=== PATIENT | female | born 1960 | race Caucasian/White ===

== ENCOUNTER → 2020-06-03 13:26 | Outpatient (BNVA) | payer OTHER, SELFPAY | PROVIDERS: PCP Internal Medicine; Referring Provider Internal Medicine; Visit Provider Student in an Organized Health Care Education/Training Program | DX: Z76.89 Persons encountering health services in other specified circumstances (principal) ==

== ENCOUNTER → 2020-09-29 15:08 | Outpatient (BNVA) | payer OTHER, SELFPAY | PROVIDERS: PCP Physician Assistant; Visit Provider Student in an Organized Health Care Education/Training Program ==

== ENCOUNTER → 2021-03-01 10:51 | Outpatient (BNVA) | payer OTHER, SELFPAY | PROVIDERS: Visit Provider Nurse Practitioner Family ==

== ENCOUNTER 2021-03-03 08:22 | Outpatient (REF) | payer OTHER, SELFPAY ==
[2021-03-03 09:42] LABS: Alanine Aminotransferase 12 U/L (0-31); Albumin Level 4.5 g/dL (3.5-5.0); Alkaline Phosphatase 92 U/L (39-117); Anion Gap 12 (12-20); Aspartate Amino Transferase 15 U/L (5-31); Bilirubin Total 0.7 mg/dL (0.0-1.0); Blood Urea Nitrogen 14 mg/dL (9-16); Calcium 9.8 mg/dL (8.4-10.2); Carbon Dioxide 27 mmol/L (22-29); Chloride 101 mmol/L (96-108); Estimated Glomerular Filt Rate > 60; Glucose Random 88 mg/dL (60-115); Potassium 5.3 mmol/L (3.3-5.1); Sodium 135 mmol/L (135-145); Total Protein 7.2 g/dL (6.5-8.0)
== END 2021-03-03 08:23 | disposition home or self-care (01) ==
LOC: HO.LAB 08:22
PROVIDERS: Visit Provider Nurse Practitioner Family
DX: M79.7 Fibromyalgia (principal)
CPT/HCPCS: 36415; 80053

== ENCOUNTER → 2021-11-08 13:24 | Outpatient (BNVA) | payer OTHER, SELFPAY | PROVIDERS: PCP Internal Medicine; Visit Provider Nurse Practitioner Family | DX: M79.7 Fibromyalgia (principal) ==

== ENCOUNTER 2022-10-16 10:58 | Outpatient (REF) | payer OTHER, SELFPAY ==
[2022-10-16 12:52] LABS: Erythrocyte Sedimentation Rate 20 MM/HR (0-20)
[2022-10-16 13:09] LABS: Alanine Aminotransferase 11 U/L (0-31); Albumin Level 4.5 g/dL (3.5-5.0); Alkaline Phosphatase 99 U/L (39-117); Anion Gap 15 (12-20); Aspartate Amino Transferase 15 U/L (5-31); Bilirubin Total 0.7 mg/dL (0.0-1.0); Blood Urea Nitrogen 23 mg/dL (9-16); C Reactive Protein < 0.10 mg/dL (< or = 0.50); Calcium 9.3 mg/dL (8.4-10.2); Carbon Dioxide 22 mmol/L (22-29); Chloride 106 mmol/L (96-108); Estimated Glomerular Filt Rate > 60; Glucose Random 87 mg/dL (60-115); Potassium 4.8 mmol/L (3.3-5.1); Sodium 138 mmol/L (135-145); Vitamin D 25-OH Total 33.5 ng/mL (>30)
[2022-10-16 13:33] LABS: Amphetamine Screen Urine Not Detected (Not Detect); Barbiturates, Urine Not Detected (Not Detect); Benzodiazepines Screen Urine Not Detected (Not Detect); Cannabinoid Screen Urine Not Detected (Not Detect); Cocaine Screen Urine Not Detected (Not Detect); Fentanyl, urine Not Detected (Not Detect); Opiate Screen Urine Not Detected (Not Detect); Phencyclidine Screen Urine Not Detected (Not Detect)
== END 2022-10-16 10:59 | disposition home or self-care (01) ==
LOC: HO.LAB 10:58
PROVIDERS: Visit Provider Nurse Practitioner Family
DX: M79.7 Fibromyalgia (principal); Z79.899 Other long term (current) drug therapy
CPT/HCPCS: 80053; 80307; 82306; 85652; 86140

== ENCOUNTER 2023-02-11 14:16 | Outpatient (AMB) | payer OTHER, SELFPAY ==
--- NOTE | 2023-02-11 14:25 | MHC.OFFVIS ---
Intake Vital Signs 02/11/23 14:26 Height 5 ft 5 in Weight 138 lb 0.15 oz BMI 23.0 BP 100/68 Blood Pressure Location Rt brachial Position Sitting Pulse 68 Pulse Source Pulse Oximeter Temp 97.0 F Temp Source Skin Pulse Oximetry (%) 99 Oxygen Delivery Method Room Air Intake Visit Reasons: FM Intake Note: Here for fibromyalgia follow up. 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 She gets pain in the neck, back of the shoulders, lower back, lateral hips, and the right leg. Overall she feels the fibromyalgia pains are relatively well controlled with current measures which include occasional Celebrex or ibuprofen, tramadol 50 mg b.i.d., and daily exercise. She seems to be getting regularly some GI upset taking the Celebrex so she switched back to ibuprofen but still has problems with that medication as well. However most problematic recently has been right lateral hip pain. This had been a problem in the past and was helped transiently with a local injection. She also gets some back pain that accompanies the hip pain. She had previous success with Dr. Griggs at [place]. She did not know he was still in practice. [facility] Medical History Fibromyalgia Fusion of lumbar spine Internal hemorrhoid Migraine Surgical History H/O laminectomy Hx of hysterectomy Family History Father Pancreas cancer Mother Pancreas cancer Maternal Grandmother Uterus cancer Social History (Updated 02/11/23 @ 14:33 by SALVADOR Guillaume) Household Members: Spouse Housing: House Alcohol intake: current Alcohol intake frequency: holidays/special occasions only Alcohol type: wine Patient Tobacco Use Status: Never used Tobacco service: No Current occupational status: retired Review of Systems Const Details: Negative for appetite change, weight change, fever, chills, malaise and fatigue Card Details: Negative chest pain, edema and syncope Resp Details: Negative for SOB, cough and wheezing GI Details: Negative indigestion/heartburn, nausea, abdominal pain, bowel changes, diarrhea, constipation and bloody stool. Details: Negative for dysuria, hematuria, nocturia, decreased force/flow and genital discharge Neuro Details: Negative for epilepsy, palsy, stroke, changes in speech, tingling and weakness Raymond/Lymph Details: Negative for excessive bruising or bleeding. Physical Exam Vital Signs: Last Vital Signs Temp 97.0 F 02/11/23 14:26 Pulse 68 02/11/23 14:26 BP 100/68 02/11/23 14:26 Pulse Ox 99 02/11/23 14:26 Oxygen Delivery Method Room Air 02/11/23 14:26 BMI result Body Mass Index 23.0 APPEARANCE: Patient in no acute distress EYES no redness, pupils equal and reactive to light, eyelids normal. No temporal artery tenderness, redness or swelling. ABD: Normal bowel sounds, no organomegaly, masses or tenderness. EXTREMITIES: No edema, no calf tenderness, normal peripheral pulses. NEURO: Oriented and alert x3. No focal weakness. Reflexes symmetric. Gait normal. JOINT EXAM: Cervical Spine:? Normal range of motion with mild discomfort at the extremes. No tenderness to palpation over the cervical spine. ? Mild tenderness to palpation of cervical spinal muscles. Thoracic Spine:? No scoliosis.? No tenderness on palpation. Lumbar Spine: Alignment normal.? Tenderness to palpation of the paraspinal muscles. There is pain with flexion beyond 60 degrees. Straight leg raising causes some right buttock and thigh pain at 60 degrees. Hands: Normal pain-free range of motion without tenderness, swelling, increased warmth or erythema. Able to make a full fist and has a good compensation consultant strength. Wrists: Normal pain-free range of motion without tenderness, swelling, increased warmth or erythema. Elbows: Normal pain-free range of motion without tenderness, swelling, increased warmth or erythema. Shoulders:?? Left: Full range of motion without pain. No tenderness, weakness, swelling, increased warmth or erythema. ? Right:? Full range of motion? without pain.? No swelling, increased erythema or warmth. Hips:? Left: Full range of motion, mild lumbar pain at the extremes of range of motion. No groin pain with motion. ? Right:? Mild buttock and lateral pain with extremes of rotation. No groin pain with motion. Hip bursa:? Moderate right and mild left trochanteric tenderness. Knees:? Normal pain-free range of motion without tenderness, swelling, increased warmth or erythema.? There is no effusion or crepitation Ankles:? Normal pain-free range of motion without tenderness, swelling, increased warmth or erythema. Feet:? Normal pain-free range of motion without tenderness, swelling, increased warmth or erythema. Tender points: Mild tenderness to palpation of the Occiput, trapezius, second rib, lateral epicondyle, knees, greater trochanter and gluteal area bilaterally. ?? Results Reviewed Results Reviewed: [facility] [employer] MEDICAL Imaging Result Report Patient: Nena Trejo Date of Service: 05/23/21 ? ? Patient Gender: Female Ordering Provider: Mando Peterson : 1960 ? ? ? Final MRI OF LUMBAR SPINE NO CONTRAST Exam Date: 05/23/2021 1:15 PM Ordering Diagnosis: Lumbar radiculopathyLumbar spondylosis ? MRI OF LUMBAR SPINE NO CONTRAST ? MR OF THE LUMBAR SPINE WITHOUT CONTRAST ? HISTORY: Lumbar radiculopathy. Lumbar spondylosis.. History fusion L5-S1. ? Technique: MR of the lumber spine was performed without contrast utilizing the standard departmental protocol. ? COMPARISON: Dictated report of lumbar spine series of 11/11/2020 is available for review. ? FINDINGS: Susceptibility artifact from orthopedic hardware somewhat limits image quality at the L4-5 level. Several sequences are limited by motion. ? Conus medullaris terminates at the [T12-L1] level, and demonstrates normal signal. There is no abnormal thickening or clumping of the cauda equina nerve roots. There is normal alignment of the lumbar spine. Vertebral body heights are normal. ? There is disc desiccation at every level. ? There is a hemangioma the L1 vertebral body. ? There is a tear of the annulus at the posterior disc margin in the midline at T12-L1 on the sagittal sequences. ? At L1-2, there is small posterior central disc bulge with tear of the annulus demonstrated on the sagittal sequences. No axial images are obtained through this level.. ? At L2-3, there is mild disc bulging with tear of the annulus at the posterior disc margin in the midline. There is no significant neural foraminal narrowing. There is no central spinal canal stenosis.. ? At L3-4, there is disc bulging with bilateral lateral disc bulging and small central disc protrusion/herniation. There is moderate bilateral neural foraminal narrowing, ligamentous bulging, mild facet arthropathy, and narrowing of the transverse diameter of the dural tube. There is moderate central spinal stenosis. ? At L4-5, there is disc bulging with bilateral lateral disc bulging, ligamentous bulging, moderate facet arthropathy, moderate bilateral neural foraminal narrowing. There is narrowing of the transverse diameter of the dural tube. There is mild central spinal canal stenosis. There is left lateral recess narrowing with disc compressing the left L5 nerve root in the lateral recess. ? At L5-S1, there is posterior fusion hardware which somewhat limits evaluation. There is no residual disc identified. There is no neural foraminal narrowing or central spinal canal stenosis. ? At S1-S2, there is a rudimentary disc. ? IMPRESSION IMPRESSION: Compression of the left L5 nerve root as described. ? Multilevel bony and discogenic degenerative changes as described. ? Posterior fusion at L5-S1. ? Reading Radiologist: Electronically signed by: Malinda Hansen MD Assessment & Plan Assessment & Plan (1) Degenerative disc disease, cervical: Code(s): M50.30 - Other cervical disc degeneration, unspecified cervical region (2) Osteoarthritis of lumbar spine: Code(s): M47.816 - Spondylosis without myelopathy or radiculopathy, lumbar region (3) Trochanteric bursitis of right hip: Code(s): M70.61 - Trochanteric bursitis, right hip (4) Fibromyalgia: Code(s): M79.7 - Fibromyalgia Plan Osteoarthritis with some benefit at times with the tramadol. It does not seem to cause her any side effects and she takes it responsibly so I think it could be continued. She could add more acetaminophen to her regimen rather than the NSAIDs which seem to be causing some GI upset. We will add some nighttime cyclobenzaprine of tolerated 5-10 mg. I gave her the phone number for Dr. Griggs in [place] to make an appointment to see what he might offer her back pain problems. A follow-up in 4-6 months would be reasonable. Medications: New cyclobenzaprine 5 - 10 mg (0.5 - 1 x 10 mg) PO BEDTIME PRN 30 tabs 1RF muscle spasm Coding Level of Care Code Est Pt Level 3 (67947) Diagnoses Degenerative disc disease, cervical M50.30 Osteoarthritis of lumbar spine M47.816 Trochanteric bursitis of right hip M70.61 Fibromyalgia M79.7
[2023-02-11 14:26] VITALS: BP 100/68; PULSE 68; TEMP 36.1; O2SAT 99; BMI 23.0
== END 2023-02-11 15:26 | disposition home or self-care (01) ==
PROVIDERS: PCP Internal Medicine; Visit Provider Internal Medicine Rheumatology
DX: M50.30 Other cervical disc degeneration, unspecified cervical region (principal); M47.816 Spondylosis without myelopathy or radiculopathy, lumbar region; M70.61 Trochanteric bursitis, right hip; M79.7 Fibromyalgia
CPT/HCPCS: 99213

== ENCOUNTER → 2023-02-11 14:16 | Outpatient (BNVA) | payer OTHER, SELFPAY | PROVIDERS: PCP Internal Medicine; Visit Provider Internal Medicine Rheumatology ==

== ENCOUNTER 2023-05-28 10:10 | Outpatient (AMB) | payer OTHER, SELFPAY ==
--- NOTE | 2023-05-28 10:17 | MHC.OFFVIS ---
Intake Vital Signs 05/28/23 10:18 Height 5 ft 5 in Weight 140 lb 14.006 oz BMI 23.4 BP 104/70 Blood Pressure Location Lt brachial Position Sitting Pulse 92 Pulse Source Pulse Oximeter Temp 97.7 F Temp Source Skin Pulse Oximetry (%) 98 Oxygen Delivery Method Room Air Intake Visit Reasons: oA ls, fm Intake Note: Last seen January,, returning to office in 4-6 months. Presents to office today for OA and fibromyalgia follow up. c/o pihllip hip pain. Reports seeing OSCAR Flor, community education specialist, yesterday. Received cortisone injection on left hip. Service Specialist Required: No Accompanied by: Self / Same As Patient Allergies pregabalin Allergy (Intermediate, Verified 05/28/23 10:17) hives Medication List - Last Reconciled 05/28/23 by Roque Mcdowell MD acetaminophen (Acetaminophen Extra Strength) 500 mg PO Q6H PRN celecoxib (Celebrex) 200 mg PO .2-3 times a week cyclobenzaprine 5 - 10 mg (0.5 - 1 x 10 mg) PO BEDTIME PRN diclofenac sodium 1% (Voltaren) 2 grams topical QID PRN gabapentin mg PO pantoprazole 40 mg PO DAILY sumatriptan succinate 25 mg PO tramadol 50 mg PO BID PRN HPI HPI Comments History of Present Illness Details The patient returns for evaluation of her joint pains. She has a history of fibromyalgia and osteoarthritis. She remains on Celebrex 200 mg taking once or twice a day if needed for more severe pains. She had some ibuprofen 800 mg and some signs she has taken that. Currently she is out of that prescription. She also uses some cyclobenzaprine in the evenings and Tylenol on an as-needed basis. She takes the tramadol 50 mg b.i.d.. It does not seem to cause any side effects. She noted some increase in pain this fall. She did visit the community education specialist. She has had previous back surgery but was mostly complaining of left lateral hip and buttock pain. She did receive a corticosteroid injection for what sounds like was trochanteric bursitis yesterday. The symptoms have improved slightly at this point. She also has been started on gabapentin. Previously she had some rashes with Lyrica. [facility] Medical History Fibromyalgia Fusion of lumbar spine Internal hemorrhoid Migraine Surgical History H/O laminectomy Hx of hysterectomy Family History Father Pancreas cancer Mother Pancreas cancer Maternal Grandmother Uterus cancer Social History (Updated 02/11/23 @ 14:33 by SALVADOR Guillaume) Household Members: Spouse Housing: House Alcohol intake: current Alcohol intake frequency: holidays/special occasions only Alcohol type: wine Patient Tobacco Use Status: Never used Tobacco service: No Current occupational status: retired Review of Systems Const Details: Some fatigue, particularly when her sleep gets disrupted. Negative for appetite change, weight change, fever, chills, malaise Eyes Details: Occasional headache. Negative for vision change, dry eyes and dizziness ENT Details: Negative for hearing change, tinnitus, oral ulcer, nose bleeds and oral dryness. Card Details: Negative chest pain, edema and syncope Resp Details: Occasional morning, nonproductive cough. Negative for SOB and wheezing GI Details: Negative indigestion/heartburn, nausea, abdominal pain, bowel changes, diarrhea, constipation and bloody stool. Neuro Details: Negative for epilepsy, palsy, stroke, changes in speech, tingling and weakness Endo Details: Negative for polyuria and polydypsia Raymond/Lymph Details: Negative for excessive bruising or bleeding. Physical Exam Vital Signs: Last Vital Signs Temp 97.7 F 05/28/23 10:18 Pulse 92 05/28/23 10:18 BP 104/70 05/28/23 10:18 Pulse Ox 98 05/28/23 10:18 Oxygen Delivery Method Room Air 05/28/23 10:18 BMI result Body Mass Index 23.4 APPEARANCE: Patient in no acute distress EYES no redness, pupils equal and reactive to light, eyelids normal NECK: No thyromegaly or masses, no adenopathy, trachea midline. HEART: Regulrar rhythm, S1-S2 heard, no murmurs, rubs or gallops. LUNG: Clear to percussion and auscultation ABD: Normal bowel sounds, no organomegaly, masses or tenderness. EXTREMITIES: No edema, no calf tenderness, normal peripheral pulses. JOINT EXAM: Cervical Spine:? Normal range of motion with mild discomfort at the extremes. No tenderness to palpation over the cervical spine. ? Mild tenderness to palpation of cervical spinal muscles. Thoracic Spine:? No scoliosis.? No tenderness on palpation. Lumbar Spine: Alignment normal.? Tenderness to palpation of the paraspinal muscles. There is pain with flexion beyond 60 degrees. Straight leg raising causes some right buttock and thigh pain at 60 degrees. Hands: Normal pain-free range of motion without tenderness, swelling, increased warmth or erythema. Able to make a full fist and has a good drainman strength. Wrists: Normal pain-free range of motion without tenderness, swelling, increased warmth or erythema. Elbows: Normal pain-free range of motion without tenderness, swelling, increased warmth or erythema. Shoulders:?? Left: Full range of motion without pain. No tenderness, weakness, swelling, increased warmth or erythema. ? Right:? Full range of motion? without pain.? No swelling, increased erythema or warmth. Hips:? Left: Full range of motion, mild lumbar, lateral and buttock pain at the extremes of range of motion. No groin pain with motion. ? Right:? Mild buttock and lateral pain with extremes of rotation. No groin pain with motion. Hip bursa:? Moderate right and mild left trochanteric tenderness. Knees:? Normal pain-free range of motion without tenderness, swelling, increased warmth or erythema.? There is no effusion or crepitation Ankles:? Normal pain-free range of motion without tenderness, swelling, increased warmth or erythema. Feet:? Normal pain-free range of motion without tenderness, swelling, increased warmth or erythema. Tender points: Mild tenderness to palpation of the Occiput, trapezius, second rib, lateral epicondyle, knees, greater trochanter and gluteal area bilaterally. ?? Results Reviewed Results Reviewed: [facility] Result Report Patient: Nena Trejo Date of Service: 05/23/21 ? ? Patient Gender: Female Ordering Provider: Mando Peterson : 1960 ? ? ? Final MRI OF LUMBAR SPINE NO CONTRAST Exam Date: 05/23/2021 1:15 PM Ordering Diagnosis: Lumbar radiculopathyLumbar spondylosis ? MRI OF LUMBAR SPINE NO CONTRAST ? MR OF THE LUMBAR SPINE WITHOUT CONTRAST ? HISTORY: Lumbar radiculopathy. Lumbar spondylosis.. History fusion L5-S1. ? Technique: MR of the lumber spine was performed without contrast utilizing the standard departmental protocol. ? COMPARISON: Dictated report of lumbar spine series of 11/11/2020 is available for review. ? FINDINGS: Susceptibility artifact from orthopedic hardware somewhat limits image quality at the L4-5 level. Several sequences are limited by motion. ? Conus medullaris terminates at the [T12-L1] level, and demonstrates normal signal. There is no abnormal thickening or clumping of the cauda equina nerve roots. There is normal alignment of the lumbar spine. Vertebral body heights are normal. ? There is disc desiccation at every level. ? There is a hemangioma the L1 vertebral body. ? There is a tear of the annulus at the posterior disc margin in the midline at T12-L1 on the sagittal sequences. ? At L1-2, there is small posterior central disc bulge with tear of the annulus demonstrated on the sagittal sequences. No axial images are obtained through this level.. ? At L2-3, there is mild disc bulging with tear of the annulus at the posterior disc margin in the midline. There is no significant neural foraminal narrowing. There is no central spinal canal stenosis.. ? At L3-4, there is disc bulging with bilateral lateral disc bulging and small central disc protrusion/herniation. There is moderate bilateral neural foraminal narrowing, ligamentous bulging, mild facet arthropathy, and narrowing of the transverse diameter of the dural tube. There is moderate central spinal stenosis. ? At L4-5, there is disc bulging with bilateral lateral disc bulging, ligamentous bulging, moderate facet arthropathy, moderate bilateral neural foraminal narrowing. There is narrowing of the transverse diameter of the dural tube. There is mild central spinal canal stenosis. There is left lateral recess narrowing with disc compressing the left L5 nerve root in the lateral recess. ? At L5-S1, there is posterior fusion hardware which somewhat limits evaluation. There is no residual disc identified. There is no neural foraminal narrowing or central spinal canal stenosis. ? At S1-S2, there is a rudimentary disc. ? IMPRESSION IMPRESSION: Compression of the left L5 nerve root as described. ? Multilevel bony and discogenic degenerative changes as described. ? Posterior fusion at L5-S1. ? Reading Radiologist: Assessment & Plan Assessment & Plan (1) Osteoarthritis of lumbar spine: Code(s): M47.816 - Spondylosis without myelopathy or radiculopathy, lumbar region (2) Medication monitoring encounter: Comment: Pain contract signed 05/11/2022 Code(s): Z51.81 - Encounter for therapeutic drug level monitoring (3) Degenerative disc disease, cervical: Code(s): M50.30 - Other cervical disc degeneration, unspecified cervical region (4) Fibromyalgia: Code(s): M79.7 - Fibromyalgia Plan She does have fairly widespread pains but no signs on exam of an active inflammatory arthritis. She has had previous lumbar fusion for degenerative disease and it seems to be that secondary OA is the problem in that region. Similarly she has documented cervical osteoarthritis. The lumbar OA could be contributing somewhat to her hip pain although we are waiting to see if this local injection for trochanteric bursitis helps. I would agree with the starting the gabapentin as she also has some element of fibromyalgia. The gabapentin dose of course could be gradually increased as tolerated. She does not seem to have any side effects and claims some benefit with tramadol so we will continue that prescription. Light aerobic activity is encouraged. She will follow through with further treatment with physiatry. A follow-up here in about 6 months seems reasonable. Coding Level of Care Code Est Pt Level 3 (70820) Diagnoses Osteoarthritis of lumbar spine M47.816 Medication monitoring encounter Z51.81 Degenerative disc disease, cervical M50.30 Fibromyalgia M79.7
[2023-05-28 10:18] VITALS: BP 104/70; PULSE 92; TEMP 36.5; O2SAT 98; BMI 23.4
== END 2023-05-28 10:46 | disposition home or self-care (01) ==
PROVIDERS: PCP Internal Medicine; Visit Provider Internal Medicine Rheumatology
DX: M47.816 Spondylosis without myelopathy or radiculopathy, lumbar region (principal); Z51.81 Encounter for therapeutic drug level monitoring; M50.30 Other cervical disc degeneration, unspecified cervical region; M79.7 Fibromyalgia
CPT/HCPCS: 99213

== ENCOUNTER → 2023-05-28 10:10 | Outpatient (BNVA) | payer OTHER, SELFPAY | PROVIDERS: PCP Internal Medicine; Visit Provider Internal Medicine Rheumatology ==

== ENCOUNTER 2023-11-27 08:55 | Outpatient (AMB) | payer OTHER, SELFPAY ==
--- NOTE | 2023-11-27 09:01 | A.OFFVIS_ITS ---
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 Mcdowell, presents today for OA/FM follow up. 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 She has a history of fibromyalgia and osteoarthritis. She remains on Celebrex 200 mg taking once or twice a day if needed for more severe pains. She has not taken ibuprofen 800 mg in a while. She also uses cyclobenzaprine in the evenings and Tylenol on an as- needed basis. She takes the tramadol 50 mg b.i.d.. She sees Neuro and Physiatry for he Back pain and recent MRI shows severe spinal stenosis per Physiatry. The gabapentin was increased by physiatry to gabapentin 250 BID but she only takes one because it bothers her stomach to take more. She is being evaluated for treatment options for her back. She reports feeling increasingly depressed. because of the constant pain. She has seen a therapist before. She reports an allergic reaction to a corticosteroid injection for what sounds like trochanteric bursitis. Previously she had some rashes with Lyrica. --MRI of Lumbar spine; have had prior spine surgery. Following with Neuro and Physiatry --Elevated Microalbumin/Creatinin ratio - will continue to follow with with PCP. [facility] Medical History (Updated 11/27/23 @ 09:32 by RUBEN Wolf) Depression Migraine Internal hemorrhoid Fusion of lumbar spine Fibromyalgia Surgical History Hx of hysterectomy H/O laminectomy Family History Father Pancreas cancer Mother Pancreas cancer Maternal Grandmother Uterus cancer Social History Household Members: Spouse Housing: House Alcohol intake: current Alcohol intake frequency: holidays/special occasions only Alcohol type: wine Patient Tobacco Use Status: Never used Tobacco service: No Current occupational status: retired Review of Systems Const All systems reviewed & are unremarkable except as noted in HPI and below Physical Exam Vital Signs: Last Vital Signs Pulse 75 11/27/23 09:02 BP 116/70 11/27/23 09:02 Pulse Ox 98 11/27/23 09:02 Oxygen Delivery Method Room Air 11/27/23 09:02 BMI result Body Mass Index 24.1 APPEARANCE: Patient in no acute distress; tearful EYES no redness, eyelids normal HEART: Regular rhythm, S1-S2 heard, no murmurs, rubs or gallops. LUNG: Clear to percussion and auscultation EXTREMITIES: No edema, no calf tenderness, normal peripheral pulses. walks slowly with a slouch JOINT EXAM: Cervical Spine:? Normal range of motion with discomfort at the extremes. No tenderness to palpation over the cervical spine. ? Mild tenderness to palpation of cervical spinal muscles. Thoracic Spine:? No scoliosis.? No tenderness on palpation. Lumbar Spine: Alignment normal.? Tenderness to palpation of the paraspinal muscles. There is pain with flexion beyond 60 degrees. Straight leg raising causes some right buttock and thigh pain at 60 degrees. Hands: Normal pain-free range of motion without tenderness, swelling, increased warmth or erythema. Able to make a full fist and has a good hostler helper strength. Wrists: Normal pain-free range of motion without tenderness, swelling, increased warmth or erythema. Elbows: Normal pain-free range of motion without tenderness, swelling, increased warmth or erythema. Shoulders:?? Left: Full range of motion without pain. No tenderness, weakness, swelling, increased warmth or erythema. ? Right:? Full range of motion? without pain.? No swelling, increased erythema or warmth. Hips:? Left: Full range of motion, mild lumbar, lateral and buttock pain at the extremes of range of motion. No groin pain with motion. ? Right:? Mild buttock and lateral pain with extremes of rotation. No groin pain with motion. Hip bursa:? Moderate right and mild left trochanteric tenderness. Knees:? Normal pain-free range of motion without tenderness, swelling, increased warmth or erythema.? There is no effusion or crepitation Ankles:? Normal pain-free range of motion without tenderness, swelling, increased warmth or erythema. Feet:? Normal pain-free range of motion without tenderness, swelling, increased warmth or erythema. Tender points: Mild tenderness to palpation of the Occiput, trapezius, second rib, lateral epicondyle, knees, greater trochanter and gluteal area bilaterally. ?? Assessment & Plan Assessment & Plan (1) Osteoarthritis of lumbar spine: Code(s): M47.816 - Spondylosis without myelopathy or radiculopathy, lumbar region Category: Medical Qualifiers: Spinal osteoarthritis complication: with radiculopathy Qualified Code(s): M47.26 - Other spondylosis with radiculopathy, lumbar region (2) Medication monitoring encounter: Comment: Pain contract signed 05/11/2022 Code(s): Z51.81 - Encounter for therapeutic drug level monitoring Category: Medical (3) Degenerative disc disease, cervical: Code(s): M50.30 - Other cervical disc degeneration, unspecified cervical region Category: Medical (4) Fibromyalgia: Code(s): M79.7 - Fibromyalgia Category: Medical (5) Depression: Code(s): F32.A - Depression, unspecified Category: Medical Qualifiers: Depression Type: reactive depression Qualified Code(s): F32.9 - Major depressive disorder, single episode, unspecified Plan #FM/Lumbar DDD:Ms. Trejo was tearful when she expresses that she is in severe pain but tries to keep active with walking. Fairlywidespread pains but no signs on exam of an active inflammatory arthritis. She has had previous lumbar fusion for degenerative disease. Similarly she has documented cervical osteoarthritis. The lumbar OA is likely contributing to her hip pain. The increase in Gabapenitin did help her but she fears it may also contribute to her depressive mood. She denies any side effects and claims some benefit with tramadol so we will continue that prescription. Light aerobic activity is encouraged. She will follow through with further treatment with physiatry and [facility]. #Depressive Mood: I recommend that she see a therapist again who can help her manage this. A follow-up here in about 6 months I spent 25 minutes reviewing chart, evaluating patient and documenting Coding Level of Care Code Est Pt Level 3 (86310) Diagnoses Osteoarthritis of spine with radiculopathy, lumbar region M47.26 Spinal osteoarthritis complication: with radiculopathy Medication monitoring encounter Z51.81 Degenerative disc disease, cervical M50.30 Fibromyalgia M79.7 Reactive depression F32.9 Depression Type: reactive depression
[2023-11-27 09:02] VITALS: BP 116/70; PULSE 75; O2SAT 98; BMI 24.1
== END 2023-11-27 09:33 | disposition home or self-care (01) ==
PROVIDERS: PCP Internal Medicine; Visit Provider Nurse Practitioner Family
DX: M47.26 Other spondylosis with radiculopathy, lumbar region (principal); Z51.81 Encounter for therapeutic drug level monitoring; M50.30 Other cervical disc degeneration, unspecified cervical region; M79.7 Fibromyalgia; F32.9 Major depressive disorder, single episode, unspecified
CPT/HCPCS: 99213

== ENCOUNTER → 2023-11-27 08:55 | Outpatient (BNVA) | payer OTHER, SELFPAY | PROVIDERS: PCP Internal Medicine; Visit Provider Nurse Practitioner Family ==

== ENCOUNTER 2024-05-28 10:53 | Outpatient (AMB) | payer OTHER, SELFPAY ==
--- NOTE | 2024-05-28 10:55 | A.OFFVIS_ITS ---
Vital Signs 05/28/24 11:02 Height 5 ft 5 in Weight 139 lb 5.314 oz BMI 23.2 BP 124/68 Blood Pressure Location Lt brachial Position Sitting Pulse 71 Pulse Source Pulse Oximeter Intake Visit Reasons: FM/Loweer back Pain Intake Note: Patient present for Lower back pain, last seen by Kiley Reyes on 11/27/23. Patient reports she was diagnoised with Chronic Lyme Disease 3 months ago and is currently on amoxicillin. Pain Duration? 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 At that time patient was tearful about her widespread pain. There was no evidence of inflammatory arthritis. Since then she went to see an Integrative medicine specialist. She was diagnosed with chronic lyme disease and given 2 months of doxycycline. She states she feels that this helped her but the pain returned after completing the treatment. She is also currently on several supplements. Today she continues to complain of widespread pain and is hoping for some additional therapeutic options Also notes tinnitus and decreased hearing as per her family Rheumatologic History: Fibromyalgia - gabapentin: helped but she felt it made her more depressed - celebrex: helped but not fully efficacious so self discontinued - Duloxetine: not efficacious - cylcobenazaprine: self discontinued Current Rheumatology Medication(s): Tramadol 50mg bid prn PFSH Medical History (Updated 11/27/23 @ 09:32 by VANDANA Wolf-GEORGIE) Depression Migraine Internal hemorrhoid Fusion of lumbar spine Fibromyalgia Surgical History Hx of hysterectomy H/O laminectomy Family History Father Pancreas cancer Mother Pancreas cancer Maternal Grandmother Uterus cancer Social History Household Members: Spouse Housing: House Alcohol intake: current Alcohol intake frequency: holidays/special occasions only Alcohol type: wine Patient Tobacco Use Status: Never used Tobacco service: No Current occupational status: retired Review of Systems Const Details: Review of Systems Constitutional: Denies fever, chills, weight loss ENT: Denies vision changes, eye pain or eye redness, dental caries, dry mouth GI: Denies nausea, vomiting, diarrhea, abdominal pain, change in BM Pulm: Denies SOB, HERNANDEZ, hemoptysis, wheezing Cards: Denies chest pain, palpitations Skin: Denies Raynaud's, rash, nail changes, photosensitivity, 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 Well appearing and in no apparent painful distress HEENT Conjunctiva and sclera clear. ?Pupils equal round and reactive to light. ?No lymphadenopathy. ? CHEST/RESPIRATORY SYSTEM Normal respiratory effort and able to speak in complete sentences. ?Clear to auscultation bilaterally. ?No crackles, rales, rhonchi, wheezes heard. CARDIAC SYSTEM Regular rate and rhythm. ?S1 and S2 heard no murmurs. ?Radial pulses intact bilaterally MSK Hands: ?Good appeals coordinator strength bilaterally. No deformities noted. ?No synovitis noted to the MCPs, PIPs or DIPs. ?No tenderness to palpation of these joints. Wrists: ?Full range of motion at the wrists without pain. ?No tenderness to palpation or synovitis noted to the wrists. Elbows: Full range of motion without pain. No tenderness, weakness, swelling, increased warmth or erythema. Shoulders: Full range of motion without pain. No tenderness, weakness, swelling, increased warmth or erythema. Hips: Full range of motion without pain. Hip bursa: No tenderness to palpation Knees: ?Full range of motion. ?No tenderness, swelling, increased warmth or erythema.?No effusion or crepitations Ankles: Full range of motion. ?No tenderness, swelling, increased warmth or erythema.? Feet: ?Negative squeeze test. ?No tenderness to palpation or swelling of the MTPs. Tender points:??No tenderness to palpation of the neck, shoulders, chest, elbows, hips, buttocks or knees. SKIN Skin intact without rashes. Results Reviewed Results Reviewed: Laboratory Tests 08/18/18 10/16/22 09:30 11:10 ESR 34 H 20 C-Reactive Protein < 0.10 25-OH Vitamin D Total 33.5 Rheumatoid Factor < 15.0 Cycl Citrul Peptide IgG <16 MALA Screen Negative Assessment & Plan Assessment & Plan (1) Fibromyalgia: Code(s): M79.7 - Fibromyalgia Category: Medical Plan: #Fibromyalgia Limited therapeutic options available Unable to do low dose naltrexone because patient is on tramadol Failed duloxetine Failed gabapentin Plan - Milnacipran 25mg. Start one tablet a day then 1 tablet twice a day then up to 2 tablets twice a day - Continue stretches and light exercise - requesting referral to audiology for hearing evaluation - RTC 6 months Plan I spent 20 minutes reviewing the record and labs, seeing the patient, discussing the treatment plan and documenting in the medical record ? Orders: Referrals Audiology Referral H91.93 - Unspecified hearing loss, bilateral, H93.19 - Tinnitus, unspecified ear Medications: New milnacipran 25 mg PO BID 90 days 180 tabs 1RF M79.7 - Fibromyalgia Discontinued cyclobenzaprine Discontinued Reason: Patient no longer taking 5 - 10 mg (0.5 - 1 x 10 mg) PO BEDTIME PRN 30 tabs 1RF muscle spasm Coding Level of Care Code Est Pt Level 3 (41736) Diagnoses Fibromyalgia M79.7
[2024-05-28 11:02] VITALS: BP 124/68; PULSE 71; BMI 23.2
== END 2024-05-28 11:48 | disposition home or self-care (01) ==
PROVIDERS: PCP Internal Medicine; Visit Provider Student in an Organized Health Care Education/Training Program
DX: M79.7 Fibromyalgia (principal)
CPT/HCPCS: 99213

== ENCOUNTER → 2024-05-28 10:53 | Outpatient (BNVA) | payer OTHER, SELFPAY | PROVIDERS: PCP Internal Medicine; Visit Provider Student in an Organized Health Care Education/Training Program ==

== ENCOUNTER 2024-06-25 09:11 | Outpatient (REF) | payer OTHER, SELFPAY | END 2024-06-25 09:12 | disposition home or self-care (01) | LOC: HO.SH 09:11 | PROVIDERS: Visit Provider Student in an Organized Health Care Education/Training Program | DX: H93.19 Tinnitus, unspecified ear (principal); H91.93 Unspecified hearing loss, bilateral | CPT/HCPCS: 92557 ==

== ENCOUNTER 2025-05-04 09:08 | Outpatient (AMB) | payer OTHER, SELFPAY ==
--- OUTSIDE RECORDS SUMMARY | 2025-04-30 09:30 | XMS_ITS | Encounter Summary ---
Author Organization [employer] Address [address] [place] [address] Care Team Providers Care Category Planner Name Role Phone Marion Soria Primary Care Provider + Reason for Visit * Reason Comments Fibromyalgia Neck Pain Back Pain Migraine GERD Hyperlipidemia Encounter Details Date Type Department Care Team (Latest Contact Info) Description 04/30/2025 9:30 AM EST Office Visit Internal Medicine - [address] [place] [address] Marion Soria PA [address] [place] [address] Fibromyalgia (Primary Dx); Chronic neck and back pain; History of migraine; Gastroesophageal reflux disease, unspecified whether esophagitis present; Pure hypercholesterolemia Social History Tobacco Use Types Packs/Day Years Used Date Smoking Tobacco: Never Smokeless Tobacco: Never Alcohol Use Standard Drinks/Week Comments No 0 (1 standard drink = 0.6 oz pur e alcohol) Comments Unknown Sex and Gender Information Value Date Recorded Sex Assigned at Not on file Legal Sex Female 1:58 AM EST Gender Identity Not on file Sexual Orientation Not on file documented as of this encounter Last Filed Vital Signs Vital Sign Reading Time Taken Comments Blood Pressure 125/89 04/30/2025 9:26 AM EST Pulse 79 04/30/2025 9:26 AM EST Temperature 37 C (98.6 F) 04/30/2025 9:26 AM EST Respiratory Rate - - Oxygen Saturation 99% 04/30/2025 9:26 AM EST Inhaled Oxygen Concentration - - Weight 66.1 kg (145 lb 12.8 oz) 04/30/2025 9:26 AM EST Height 162.6 cm (5' 4 ) 04/30/2025 9:26 AM EST Body Mass Index 25.03 04/30/2025 9:26 AM EST documented in this encounter Ordered Prescriptions Prescription Sig Dispense Quantity Refills Last Filled Start Date End Date pantoprazole (PROTONIX) 20 mg EC tabletIndications:G astroesophageal reflux disease, unspecified whether esophagitis present Take 1 tablet (20 mg total) by mouth 1 (one) time each day before breakfast. Do not crush, chew, or split. 90 tablet 3 04/30/2025 documented in this encounter Progress Notes * OSCAR Cardoso - 04/30/2025 9:30 AM EST CHIEF COMPLAINT: Fibromyalgia, Neck Pain (/), Back Pain, Migraine (/), GERD, and Hyperlipidemia IDENTIFIER: Nena Trejo is a 64 y.o. old female. HPI: Follow-up fibromyalgia, chronic neck and back pain, migraine headaches, GERD and hyperlipidemia. She was last seen by me for physical 10/28/2024. Last labs (CMP, hemoglobin A1c, lipids, CBC with differential, magnesium, vitamin D, vitamin B12, TSH, ferritin, iron, folate) were done 01/29/2025. States she is compliant with her medications and denies any side effects. Fibromyalgia/chronic neck and back pain are mostly stable on tramadol 50 mg 1-2 tabs daily as needed per rheumatology. She also follows with naturopathic provider in [place] and integrative medicine provider in [place]. Had been treated for chronic Lyme about a year ago. Migraine headaches treated with Imitrex as needed. GERD is stable with pantoprazole 20 mg daily. Hyperlipidemia is dietcontrolled and stable with last LDL 133, triglycerides 104, HDL 72. Vitamin D was a bit low at 19.5. Was encouraged compliance with her vitamin D supplementation. Also stopped b12 supp as was elevated. Does feel like a lot of her symptoms can be triggered by stress from living with her who she and wants a divorce, but he is still trying to hang on. Other Providers: PICTURE BOOKER Dr. Krueger at [facility] at [facility] for LBP GI through [place] - IBS pred constipation, GERD Transporter Radiology at [facility] - Fibromyalgia Urologist Dr. Vincent - microscopic hematuria (w/u ~2016) Director Of Rooms Dr. Le Control Engineer Dr. Griggs - chronic neck and back pain Dentist [place] [facility] Dr. Kayla Zaman doctor of naturopathic and functional medicine - chronic lyme [facility] - chronic lyme ROS: GENERAL: Negative for malaise, significant weight loss and fever RESPIRATORY: No cough, wheezing or shortness of breath CARDIOVASCULAR: No chest pain, leg swelling or palpitations SKIN: No lesions, rash or itching NEURO: Occasional migraine headaches PAST MEDICAL HISTORY: Patient Active Problem List Diagnosis Date Noted History of migraine Vitamin D deficiency Microscopic hematuria 03/23/2024 Chronic neck and back pain 03/23/2024 Lumbar spondylosis 12/13/2023 Anxiety 09/12/2017 GERD (gastroesophageal reflux disease) 09/12/2017 Fibromyalgia 09/12/2017 Hyperlipidemia 09/12/2017 Allergic rhinitis 01/07/2017 DDD (degenerative disc disease), cervical 10/11/2016 Insomnia 04/05/2016 Internal hemorrhoids 04/05/2016 Surgical History[1] SOCIAL HISTORY: Social History Tobacco Use Smoking status: Never Smokeless tobacco: Never Substance Use Topics Alcohol use: No FAMILY HISTORY: Family History[2] MEDICATIONS DISCONTINUED/REORDERED: Medications Discontinued During This Encounter Medication Reason gabapentin (NEURONTIN) 300 mg capsule pantoprazole (PROTONIX) 20 mg EC tablet Reorder ACTIVE MEDICATIONS: Medications Taking[3] ALLERGIES: Allergies[4] PHYSICAL EXAM: Visit Vitals BP 125/89 Pulse 79 Temp 37 ??C (98.6 ??F) (Temporal) Ht 1.626 m (64 ) Wt 66.1 kg (145 lb 12.8 oz) SpO2 99% BMI 25.03 kg/m?? Smoking Status Never BSA 1.71 m?? APPEARANCE: Alert and in no acute distress EYES: Conjunctiva and sclera normal. HEART: RRR LUNG: clear to auscultation bilaterally EXTREMITIES: No edema NEURO: Awake, alert and oriented x 3 SKIN: Skin color normal. Warm and dry. LABS: Appointment on 01/29/2025 Component Date Value Ref Range Status Folate 01/29/2025 >20.0 (H) 2.8 - 17.0 ng/ml Final Iron 01/29/2025 108 40 - 150 mcg/dL Final Ferritin 01/29/2025 23 8 - 252 ng/mL Final TSH 01/29/2025 1.55 0.40 - 4.00 mcIU/mL Final Vitamin B-12 01/29/2025 >2,000 (H) 250 - 900 pcg/mL Final Vit D, 25-Hydroxy 01/29/2025 19.4 (L) 30.0 - 80.0 ng/mL Final Magnesium 01/29/2025 2.4 1.9 - 2.6 mg/dL Final Cholesterol 01/29/2025 226 (H) 0 - 200 mg/dL Final Triglycerides 01/29/2025 104 0 - 150 mg/dL Final HDL 01/29/2025 72 >=40 mg/dL Final LDL Calculated 01/29/2025 133 (H) 0 - 100 mg/dL Final Estimated LDL Calculated using equation: Total cholesterol - HDL cholesterol - (Triglycerides/5) VLDL Cholesterol Alin 01/29/2025 20.8 mg/dL Final Non HDL Chol. (LDL+VLDL) 01/29/2025 154 (H) <145 mg/dL Final Chol/HDL Ratio 01/29/2025 3.1 0.0 - 4.4 Final Hemoglobin A1C 01/29/2025 5.4 <6.5 % Final Mean Bld Glu Estim. 01/29/2025 108 mg/dL Final Sodium 01/29/2025 139 133 - 145 mmol/L Final Potassium 01/29/2025 5.0 3.5 - 5.5 mmol/L Final Chloride 01/29/2025 106 96 - 110 mmol/L Final CO2 01/29/2025 25 21 - 32 mmol/L Final Anion Gap 01/29/2025 8 3 - 11 Final Glucose 01/29/2025 89 70 - 100 mg/dL Final BUN 01/29/2025 17 5 - 25 mg/dL Final Creatinine 01/29/2025 0.69 0.50 - 1.10 mg/dL Final eGFR 01/29/2025 97 >=60 mL/min/1.73m2 Final Calculation based on the Chronic Kidney Disease Epidemiology Collaboration (CKD- EPI) equation refitwithout adjustment for race. BUN/Creatinine Ratio 01/29/2025 24.6 Final Calcium 01/29/2025 9.2 8.5 - 10.5 mg/dL Final AST (SGOT) 01/29/2025 16 10 - 42 unit/L Final ALT (SGPT) 01/29/2025 20 10 - 60 unit/L Final Alkaline Phosphatase 01/29/2025 97 42 - 121 unit/L Final Total Protein 01/29/2025 7.1 6.0 - 8.0 g/dL Final Albumin 01/29/2025 4.1 3.2 - 5.0 g/dL Final Total Bilirubin 01/29/2025 0.7 0.0 - 1.4 mg/dL Final WBC 01/29/2025 9.2 4.8 - 10.8 K/mcL Final RBC 01/29/2025 4.10 3.80 - 4.80 M/mcL Final Hemoglobin 01/29/2025 12.4 11.5 - 16.0 g/dL Final Hematocrit 01/29/2025 37.8 35.0 - 47.0 % Final MCV 01/29/2025 92.9 79.0 - 98.0 FL Final MCH 01/29/2025 30.5 27.0 - 32.0 pcg Final MCHC 01/29/2025 32.8 32.0 - 37.0 g/dL Final RDW 01/29/2025 12.6 11.0 - 15.0 % Final Platelets 01/29/2025 273 130 - 400 K/mcL Final MPV 01/29/2025 10.6 7.0 - 11.0 FL Final NRBC 01/29/2025 0.0 <1.0 % Final NRBC Absolute 01/29/2025 0.00 <0.10 K/mcL Final Neutrophils Relative 01/29/2025 34.2 % Final This is an appended report. These results have been appended to a previously preliminary verified report. Lymphocytes Relative 01/29/2025 58.1 % Final This is an appended report. These results have been appended to a previously preliminary verified report. Monocytes Relative 01/29/2025 5.2 % Final This is an appended report. These results have been appended to a previously preliminary verified report. Eosinophils Relative 01/29/2025 1.4 % Final This is an appended report. These results have been appended to a previously preliminary verified report. Basophils Relative 01/29/2025 0.9 % Final This is an appended report. These results have been appended to a previously preliminary verified report. Immature Granulocytes Relative 01/29/2025 0.2 % Final This is an appended report. These results have been appended to a previously preliminary verified report. Neutrophils Absolute 01/29/2025 3.12 1.50 - 7.00 K/mcL Final This is an appended report. These results have been appended to a previously preliminary verified report. Lymphocytes Absolute 01/29/2025 5.32 (H) 1.00 - 5.00 K/mcL Final This is an appended report. These results have been appended to a previously preliminary verified report. Monocytes Absolute 01/29/2025 0.48 0.20 - 1.00 K/mcL Final This is an appended report. These results have been appended to a previously preliminary verified report. Eosinophils Absolute 01/29/2025 0.13 0.00 - 0.50 K/mcL Final This is an appended report. These results have been appended to a previously preliminary verified report. Basophils Absolute 01/29/2025 0.08 0.00 - 0.20 K/mcL Final This is an appended report. These results have been appended to a previously preliminary verified report. Immature Granulocytes Absolute 01/29/2025 0.02 0.00 - 0.03 K/mcL Final This is an appended report. These results have been appended to a previously preliminary verified report. Medication and lab orders: No orders of the defined types were placed in this encounter. Other orders: None IMAGING: IMPRESSION: 1. Fibromyalgia 2. Chronic neck and back pain 3. History of migraine 4. Gastroesophageal reflux disease, unspecified whether esophagitis present 5. Pure hypercholesterolemia PLAN: 1. Fibromyalgia/chronic neck and back pain. Stable. Continue tramadol and rheumatology follow-up. Diet and exercise discussed. Stress reduction discussed. 2. Migraine headaches. Stable. Utilizes Imitrex as needed. 3. GERD. Stable. Continue pantoprazole 20 mg daily and avoid aggravating foods. Remain upright 2 to3 hours after eating. 4. Hyperlipidemia. Stable. Reviewed lipids. Continue to work on diet and exercise. Follow-up 6 months for physical. Call sooner if needed. OSCAR Cardoso on 04/30/2025 at 9:51 AM EST [1] Past Surgical History: Procedure Laterality Date BACK SURGERY 2000 PROCEDURE: HISTORICAL BACK SURGERY; COMMENT: back surgery BACK SURGERY PROCEDURE: HISTORICAL BACK SURGERY; COMMENT: laminectomy late [address] Summers COLONOSCOPY 05/30/2016 PROCEDURE: OUTSIDE COLONOSCOPY; COMMENT: normal COLONOSCOPY 08/13/2019 PROCEDURE: HISTORICAL COLONOSCOPY; COMMENT: negative OTHER SURGICAL HISTORY 05/30/2016 PROCEDURE: OUTSIDE ENDOSCOPY; COMMENT: normal OTHER SURGICAL HISTORY 1997 PROCEDURE: VT TOTAL ABDOMINAL HYSTERECT W/WO RMVL TUBE OVARY; COMMENT: due endometriosis TONSILLECTOMY ADENOIDECTOMY, BILATERAL MYRINGOTOMY AND TUBES PROCEDURE: VT TONSILLECTOMY & ADENOIDECTOMY <AGE 12 [2] Family History Problem Relation Name Age of Onset Colon cancer Aunt maternal, 60's [3] Outpatient Medications Marked as Taking for the 04/30/25 encounter (Office Visit) with OSCAR Cardoso Medication Sig Dispense Refill pantoprazole (PROTONIX) 20 mg EC tablet Take 1 tablet (20 mg total) by mouth 1 (one) time each day before breakfast. Do not crush, chew, or split. 90 tablet 3 SUMAtriptan (IMITREX) 25 mg tablet Take 1 tab po now May repeat dose once after 2 hours, if needed. traMADoL (ULTRAM) 50 mg tablet Take 1 tablet (50 mg total) by mouth every 4 (four) hours. Max DailyAmount: 300 mg [DISCONTINUED] pantoprazole (PROTONIX) 20 mg EC tablet Take 1 Tablet by mouth. [4] Allergies Allergen Reactions Cortisone Reaction after steroid injection Milnacipran Headache and Itching Pregabalin Itching Adverse reaction documented in this encounter Plan of Treatment Upcoming Encounters Date Type Department Care Team (Late st Contact Info) Description 10/29/2025 9:00 AM EDT Office Visit Internal Medicine - [address] [place] [address] Marion Soria PA [address] [place] [address] documented as of this encounter Visit Diagnoses Diagnosis Fibromyalgia- Primary Unspecified myalgia and myositis Chronic neck and back pain History of migraine Gastroesophageal reflux disease, unspecified whether esophagitis present Pure hypercholesterolemia documented in this encounter Discontinued Medications Medication Sig Discontinue Reason Start Date End Da te gabapentin (NEURONTIN) 300 mg capsule TAKE 2 CAPSULES BY MOUTH 3 TIMES A DAY 10/29/2023 04/30/2025 pantoprazole (PROTONIX) 20 mg EC tablet Take 1 Tablet by mouth. Reorder 12/13/2016 04/30/2025 documented as of this encounter Additional Health Concerns Assessment Noted Time PHQ-9 Depression Total Score: 0 04/30/20 25 9:26 AM EST documented as of this encounter Care Teams Category Planner Relationship Specialty Start Date End Date Marino Soria PA [address] [facility] [address] [place] [address] PCP - General Internal Medicine 10/08/19 documented as of this encounter
--- NOTE | 2025-05-04 09:21 | A.OFFVIS_ITS ---
Vital Signs 05/04/25 09:33 Height 5 ft 5 in Weight 148 lb 9.465 oz BMI 24.7 BP 130/74 Blood Pressure Location Lt brachial Position Sitting Pulse 83 Pulse Source Pulse Oximeter Pulse Oximetry (%) 94 Oxygen Delivery Method Room Air Intake Visit Reasons: follow up Intake Note: Patient presents for Fibromyalgia follow up. 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 She was diagnosed with chronic lyme disease and given 2 months of doxycycline. She states she feels that this helped her but the pain returned after completing the treatment. - She is also currently on several supplements. - Today she continues to complain of widespread pain and is hoping for some a dditional therapeutic options - Also notes tinnitus and decreased hearing as per her family - Sent to audiology - Trial of milnacipran Today - On tramadol 50mg bid prn - Tried the milnacipran but this gave her a really bad stomach ache - Continues to have wide spread pain especially at night - Also bothered by restless legs at night as well Rheumatologic History: Fibromyalgia - gabapentin: helped but she felt it made her more depressed - celebrex: helped but not fully efficacious so self discontinued - Duloxetine: not efficacious - cylcobenazaprine: self discontinued - milnacipran: did not tolerate - Lyrica: allergic reaction - Amitriptyline Current Rheumatology Medication(s): Tramadol 50mg bid prn [facility] Medical History (Updated 11/27/23 @ 09:32 by VANDANA Wolf-) Depression Migraine Internal hemorrhoid Fusion of lumbar spine Fibromyalgia Surgical History Hx of hysterectomy H/O laminectomy Family History Father Pancreas cancer Mother Pancreas cancer Maternal Grandmother Uterus cancer Social History Household Members: Spouse Housing: House Alcohol intake: current Alcohol intake frequency: holidays/special occasions only Alcohol type: wine Patient Tobacco Use Status: Never used Tobacco service: No Current occupational status: retired Review of Systems Narrative Review of Systems Constitutional: Denies fever, chills, weight loss ENT: Denies vision changes, eye pain or eye redness, dental caries, dry mouth GI: Denies nausea, vomiting, diarrhea, abdominal pain, change in BM Pulm: Denies SOB, HERNANDEZ, hemoptysis, wheezing Cards: Denies chest pain, palpitations Skin: Denies Raynaud's, rash, nail changes, photosensitivity, RN WOUND: Denies headaches, weakness, paresthesias, recurrent falls MSK: as per HPI All other systems reviewed and are unremarkable except noted above Physical Exam Exam Exam: Vital signs reviewed Physical Examination CONSTITUITIONAL Patient alert and cooperative. Well appearing and in no apparent painful distress MSK Hands * Right Hand: Able to make a fist. No swelling or tenderness to palpation of the MCPs, PIPs or DIPs. * Left Hand: Able to make a fist. No swelling or tenderness to palpation of the MCPs, PIPs or DIPs. * Herbedens nodes noted bilaterally Wrists * Right Wrist: Full ROM to flexion and extension. No swelling or TTP * Left Wrist: Full ROM to flexion and extension. No swelling or TTP Elbows * Right Elbow: Full ROM. No swelling or TTP. No TTP of the medial epicondyle. No TTP of the lateral epicondyle * Left Elbow: Full ROM. No swelling or TTP. No TTP of the medial epicondyle. No TTP of the lateral epicondyle Shoulders * Right shoulder: Full ROM. No swelling noted. No TTP of the AC joint. No TTP of the subacromial bursa. No TTP of the posterior shoulder * Left shoulder: Full ROM. No swelling noted. No TTP of the AC joint. No TTP of the subacromial bursa. No TTP of the posterior shoulder Hip bursa: Tenderness to palpation bilaterally Knees * Right knee: Full ROM. No swelling noted. No TTP of the knee joint line. No TTP of pes anserine bursa * Left knee: Full ROM. No swelling noted. No TTP of the knee joint line. No TTP of pes anserine bursa. * Crepitations felt bilaterally Ankles * Right ankle: Good ankle dorsiflexion and plantar flexion. No swelling. No TTP of the ankle joint * Left ankle: Good ankle dorsiflexion and plantar flexion. No swelling. No TTP of the ankle joint Feet * Right foot: Negative squeeze test * Left foot: Negative squeeze test Tender points? * Tenderness to palpation of the bilateral trapezius, supraspinatus, anterior costochondral junctions, bilateral suboccipital muscle insertions SKIN No rashes Vital Signs: Last Vital Signs Pulse 83 05/04/25 09:33 BP 130/74 05/04/25 09:33 Pulse Ox 94 05/04/25 09:33 Oxygen Delivery Method Room Air 05/04/25 09:33 BMI result Body Mass Index 24.7 Results Reviewed Results Reviewed: no recent labs to review Assessment & Plan Assessment & Plan (1) Fibromyalgia: Code(s): M79.7 - Fibromyalgia Category: Medical Plan: #Fibromyalgia Patient is a 64 y.o female with fibromyalgia here today for follow up Did not tolerate milnacipran Current complaints: RLS and wide spread pain Failed gabapentin and allergic to lyrica Will trial ropinorole and consider adding LDN at next visit Plan - Continue tramadol 50mg bid prn - Start ropinorole 0.25mg nightly for RLS - RTC 3 months, at that time will discuss adding LDN - Labs before visit: CBC, CMP, ESR, CRP Plan I spent 30 minutes reviewing the record and labs, taking a history, examining the patient, discussing the treatment plan, ordering diagnostic work up and documenting in the medical record Medications: New ropinirole administer 1-3 hours before bedtime 0.25 mg PO BEDTIME 30 tabs 0RF G25.81 - Restless legs syndrome Coding Level of Care Code Est Pt Level 4 (98904) Complex EM visit Add On G2211 Diagnoses Fibromyalgia M79.7
[2025-05-04 09:33] VITALS: BP 130/74; PULSE 83; O2SAT 94; BMI 24.7
--- OUTSIDE RECORDS SUMMARY | 2025-05-04 09:49 | XMS_ITS | Clinical Summary ---
Author Organization 175 [facility] Address [address] [place] [address] Phone Care Team Providers [employer] Name Role Phone Marion Soria Primary Care Provider + Allergies Active Allergy Reactions Criticality Noted Date Comments Cortisone 12/13/2023 Reaction after steroid injection Milnacipran Headache,Itching 08/11/2014 Pregabalin Itching 12/13/2023 Adverse reaction Medications SUMAtriptan (IMITREX) 25 mg tablet Take 1 tab po now May repeat dose once after 2 hours, if needed. 04/29/20 23 Active traMADoL (ULTRAM) 50 mg tablet Take 1 tablet (50 mg total) by mouth every 4 (four) hours. Max Daily Amount: 300 mg 08/05/19 20 Active pantoprazole (PROTONIX) 20 mg EC tabletIndicatio ns:Gastroesopha geal reflux disease, unspecified whether esophagitis present Take 1 tablet (20 mg total) by mouth 1 (one) time each day before breakfast. Do not crush, chew, or split. 90 tablet 3 04/30/20 25 Active gabapentin (NEURONTIN) 300 mg capsule TAKE 2 CAPSULES BY MOUTH 3 TIMES A DAY 10/29/19 24 025 Discontinued pantoprazole (PROTONIX) 20 mg EC tablet Take 1 Tablet by mouth. 12/14/19 025 Discontinued(Re order) Active Problems Problem Noted Date Diagnosed Date Microscopic hematuria 03/23/2024 Overview (03/23/2024): w/u via urology ~2016 Dr. Vincent pt says neg Chronic neck and back pain 03/23/2024 Lumbar spondylosis 12/13/2023 Overview (03/23/2024): Last Assessment & Plan: I reviewed the history and current lumbar spine MRI findings in detail with Ms. Pualson. While there is a degree of central stenosis, her symptoms are not the typical presentation of stenosis with claudication as she feels better with activity and worse at rest. Her pain is also quite diffuse starting at her neck and shoulders and extending down to her feet. I do not believe that a lumbar decompression would actually be of any benefit. We discussed changing her routine and I strongly encouraged swimming or aquatic therapy. All questions were answered and she is welcome to follow-up with us if anything changes. Anxiety 09/12/2017 GERD (gastroesophageal reflux disease) 8 Fibromyalgia 09/12/2017 Hyperlipidemia 09/12/2017 Allergic rhinitis 01/07/2017 DDD (degenerative disc disease), cervical 2016 Insomnia 04/05/2016 Internal hemorrhoids 04/05/2016 History of migraine Overview (04/30/2025): DX:History of migraine Vitamin D deficiency Encounters Date Type Department Care Team Description 04/30/2025 9:30 AM EST Office Visit Internal Medicine - [address] [place] [id number] Marion Soria PA Fibromyalgia (Primary Dx); Chronic neck and back pain; History of migraine; Gastroesophageal reflux disease, unspecified whether esophagitis present; Pure hypercholesterolemia from Last 3 Months Immunizations Immunization Administration Dates Next Due Influenza Quadravalent, MDCK , 0.5ml, preservative free (Flucelvax) 6mo and older 04/18/2020,04/28/2019 Tdap Tetanus diptheria acell ular pertussis (Boostrix; Adacel) 7yo and older 04/28/2019 Surgical History Surgery Date Site/Laterality Comments COLONOSCOPY 05/30/2016 PROCEDURE: OUTSIDE COLONOSCOPY; COMMENT: normal OTHER SURGICAL HISTORY 05/30/2016 PROCEDURE: OUTSIDE ENDOSCOPY; COMMENT: normal COLONOSCOPY 08/13/2019 PROCEDURE: HISTORICAL COLONOSCOPY; COMMENT: negative OTHER SURGICAL HISTORY 1997 PROCEDURE: [place] TOTAL ABDOMINAL HYSTERECT W/WO RMVL TUBE OVARY; COMMENT: due endometriosis TONSILLECTOMY ADENOIDECTOMY, BILATERAL MYRINGOTOMY AND TUBES PROCEDURE: [place] TONSILLECTOMY & ADENOIDECTOMY <AGE 12 BACK SURGERY 2000 PROCEDURE: HISTORICAL BACK SURGERY; COMMENT: back surgery BACK SURGERY PROCEDURE: HISTORICAL BACK SURGERY; COMMENT: laminectomy late [address] Summers Medical History Medical History Date Comments Allergic rhinitis 01/07/2017 DX:Allergic rh initis Anxiety 09/12/2017 DX:Anxiety DDD (degenerative disc disea se), cervical 10/11/2016 DX:DDD (degenerative disc di sease), cervical Fibromyalgia 09/12/2017 DX:Fibromyalgia GERD (gastroesophageal reflux disease) 09/12/2017 DX:GERD (gastroesophageal reflux disease) History of migraine 04/05/2016 DX:History o f migraine Hyperlipidemia 09/12/2017 DX:Hyperlipidemi a Insomnia 04/05/2016 DX:Insomnia Internal hemorrhoids 04/05/2016 DX:Internal hemorrhoids Microscopic hematuria DX:Microsc opic hematuria; COMMENT: w/u via urology -2016 Dr. Vincent pt says neg Chronic neck and back pain DX:Ch ronic neck and back pain Vitamin D deficiency Family History Medical History Relation Name Comments Colon cancer Aunt maternal, 60's Relation Name Status Comments Aunt Father Mother Social History Tobacco Use Types Packs/Day Years Used Date Smoking Tobacco: Never Smokeless Tobacco: Never Alcohol Use Standard Drinks/Week Comments No 0 (1 standard drink = 0.6 oz pur e alcohol) Comments Unknown Sex and Gender Information Value Date Recorded Sex Assigned at Not on file Legal Sex Female 1:58 AM EST Gender Identity Not on file Sexual Orientation Not on file Obstetrics History Last Filed Vital Signs Vital Sign Reading [...] Mass Index 25.03 04/30/2025 9:26 AM EST Plan of Treatment Upcoming Encounters Date Type Department Care Team (Late st Contact Info) Description 10/29/2025 9:00 AM EDT Office Visit Internal Medicine - [facility] [address] [place] [address] Marion Soria PA [address] [place] [address] Health Maintenance Due Date Last Done Comments Cervical Cancer Screening: P ap Smear 1981 Pneumococcal Vaccine: 50+ Years (1 of 1 - PCV) 2010 Zoster Vaccines (1 of 2) 2010 HIV Screening 06/02/2022 Social Influencers of Health Screening 06/02/2022 COVID-19 Vaccine (3 - 2024-2 6 season) 2025 04/21/2021, 03/23/2021 Influenza Vaccine (#1) 2025 , 04/28/2019 Breast Cancer Screening 04/25/2026 04/25/2024 DTaP,Tdap,and Td Vaccines (2 - Td or Tdap) 04/28/2029 04/28/2019 Colorectal Cancer Screening: Colonoscopy 08/13/2029 08/13/2019 Cholesterol Screening (Lipid Panel) 01/29/2030 01/29/2025, 10/10/2023 RSV Immunization Adult Patients (1 - 1-dose 75+ series) 09/17/2035 Hepatitis C Screening Completed 04/28/2019 Depression Screening Completed 04/30/2025 HIB Vaccines Aged Out No longer eligi ble based on patient's age to complete this topic HPV Vaccines Aged Out No longer eligi ble based on patient's age to complete this topic Hepatitis A Vaccines Aged Out No long er eligible based on patient's age to complete this topic Hepatitis B Vaccines Aged Out No long er eligible based on patient's age to complete this topic IPV Vaccines Aged Out No longer eligi ble based on patient's age to complete this topic MMR Vaccines Aged Out No longer eligi ble based on patient's age to complete this topic Meningococcal ACWY Vaccine Aged Out N o longer eligible based on patient's age to complete this topic Meningococcal B Vaccine Aged Out No l onger eligible based on patient's age to complete this topic RSV Immunization Patients Under 20 months Aged Out No longer eligible b ased on patient's age to complete this topic Varicella Vaccines Aged Out No longer eligible based on patient's age to complete this topic Procedures Procedure Name Priority Date/Time Associated Diagnosis Comments LIPID PANEL WITH REFLEX TO DIRECT LDL Routine 01/29/2025 7:49 AM EDT Routine physical examination Pure hypercholesterolemia EXTERNAL MAMMOGRAM REPORT 04/25/2024 COLONOSCOPY Routine 08/13/2019 HEPATITIS C SCREENING Routine 04/28/2019 from Last 3 Months or Most Recently Relevant to Health Maintenance Results * (ABNORMAL) Lipid panel with reflex to direct LDL (01/29/2025 7:49 AM EDT) Cholesterol 226(H) 0 - 200 mg/dL LAB CHEMISTRY METHOD 01/29/2025 11:44 AM [facility] Triglycerides 104 0 - 150 mg/dL LAB CHEMISTRY METHOD 01/29/2025 11:44 AM [facility] HDL 72 >=40 mg/dL LAB CHEMISTRY METHOD 01/29/2025 11:44 AM [facility] LDL Calculated 133(H) 0 - 100 mg/dL LAB CHEMISTRY METHOD 01/29/2025 11:44 AM [facility] Comment:Estimated LDL Calcul ated using equation: Total cholesterol - HDL cholesterol - (Triglycerides/5) VLDL Cholesterol Alin 20.8 mg/dL LAB CHEMISTRY METHOD 01/29/2025 11:44 AM [facility] Non HDL Chol. (LDL+VLDL) 154(H) <145 mg/dL LAB CHEMISTRY METHOD 01/29/2025 11:44 AM [facility] Chol/HDL Ratio 3.1 0.0 - 4.4 LAB CHEMISTRY METHOD 01/29/2025 11:[address] [facility] Blood Venous blood specimen / Unknown Venipuncture / Unknown 01/29/2025 7:49 AM EDT 01/29/2025 7:49 AM EDT Marion MOORE LAB BLOOD ORDERABLES Fin al Result [facility] [address] [place] [address], [place] [phone] * External Mammogram Report (04/25/2024) Anatomical Region Laterality Modality Mammography Provider [facility] BI PROCEDURES Final Result * Colonoscopy (08/13/2019) Colonoscopy no interpretation , abstracted Anatomical Region Laterality Modality Other Historical Provider HEALTH MAINTENANCE Final Result * Hepatitis C Screening (04/28/2019) Hepatitis C Screening abstracted Historical Provider HEALTH MAINTENANCE Final Result from Last 3 Months or Most Recently Relevant to Health Maintenance Insurance [facility] Care Teams [employer] Professional Relationship Specialty Start Date End Date Marion Soria PA [address] [id number] PCP - General Internal Medicine 10/08/19
== END 2025-05-04 09:55 | disposition home or self-care (01) ==
LOC: HO.RHES 09:08
PROVIDERS: PCP Internal Medicine; Visit Provider Student in an Organized Health Care Education/Training Program
DX: M79.7 Fibromyalgia (principal)
CPT/HCPCS: 99214; G2211